=== PATIENT | male | born 1965 | race Two or more races ===

== ENCOUNTER 2020-12-05 12:25 | Inpatient (IN) | payer OTHER ==
[~2020-12-05] VITALS: Ht 175.3 cm; Wt 111.7 kg
[2020-12-05] MEDS ORDERED: cefTRIAXone 1GM/50ML D5W 50 ML IV ONE (12:45)
[2020-12-05 13:54] LABS: Basophils # (auto) 0 10 ^3/uL (0-0.2); Basophils % (auto) 0.2 % (0.0-2.0); Eosinophils # (auto) 0 10 ^3/uL (0-0.8); Hematocrit 48.4 % (41.0-53.0); Lymphocytes # (auto) 0.8 10 ^3/uL (0.4-5.4); Lymphocytes % (auto) 16.2 % (10.0-50.0); Mean Corpuscular Hemoglobin 32.4 pg (28.0-32.0); Mean Corpuscular Hgb Conc. 35.1 g/dL (32.0-36.0); Mean Corpuscular Volume 92.4 fL (80.0-100.0); Monocytes # (auto) 0.5 10 ^3/uL (0-1.3); Monocytes % (auto) 10.2 % (0.0-12.0); Neutrophils # (auto) 3.5 10 ^3/uL (1.6-8.6); Neutrophils % (auto) 73.4 % (37.0-80.0); Nucleated Red Blood Cells % 0.5 %; Red Blood Cells 5.24 10^6/uL (4.5-5.90); Red Cell Distribution Width 12.8 % (11.8-14.3); White Blood Cell 4.8 10^3/uL (4.4-10.8)
[2020-12-05 14:11] LABS: Albumin 3.6 g/dL (3.4-5.0); Anion Gap 10 (5-15); Blood Urea Nitrogen 14 mg/dL (7-18); Calcium 8.3 mg/dL (8.5-10.1); Carbon Dioxide 22 mmol/L (21-32); Chloride 104 mmol/L (98-107); Glucose 106 mg/dL (74-106); Potassium 3.7 mmol/L (3.5-5.1); Sodium 136 mmol/L (136-145)
[2020-12-05 14:19] LABS: Alanine Aminotransferase 58 U/L (16-61); Alkaline Phosphatase 45 U/L (45-117); Aspartate Aminotransferase 58 U/L (15-37); BUN/Creatinine Ratio 13.9; Bilirubin, Total 0.4 mg/dL (0.2-1.0); CRP High Sensitivity 2.75 mg/dL (< 0.3); GFR African American 98 mL/min; GFR Non-African American 81 mL/min; Total Protein 7.8 g/dL (6.4-8.2)
[2020-12-05] MEDS ORDERED: TEMAZEPAM 15 MG CAP PO PRN (19:00)
[2020-12-05] MEDS ORDERED: MORPHINE SULFATE INJECTION 2 MG/ML SYRG IV PRN (19:00)
[2020-12-05] MEDS ORDERED: REMDESIVIR PER PHARMACY 0 ML IV SCH (19:00)
[2020-12-05] MEDS ORDERED: ACETAMINOPHEN 500 MG TAB PO PRN (19:00)
[2020-12-05] MEDS ORDERED: NITROGLYCERIN 0.4 MG SL TAB SL PRN (19:00)
[2020-12-05] MEDS ORDERED: ONDANSETRON HCL 4 MG/2 ML VIAL IV PRN (19:00)
[2020-12-05] MEDS: AZITHROMYCIN 500MG/ 250ML 250 ML IV SCH (19:30)
[2020-12-05 22:00] VITALS: BP 115/63
[2020-12-05] MEDS: ENOXAPARIN SOD 40 MG/0.4 ML SYRINGE SC SCH (22:10)
[2020-12-05] MEDS: ATORVASTATIN 20 MG TAB PO SCH (22:10)
[2020-12-05 23:04] VITALS: BP 115/63
[2020-12-05] MEDS ORDERED: ATOR40TA52 PO (23:37)
[2020-12-05] MEDS ORDERED: LOSA25TA38 PO (23:37)
[2020-12-06 01:30] VITALS: BP 115/63
[2020-12-06 05:00] VITALS: BP 105/68
[2020-12-06 05:57] LABS: Basophils # (auto) 0 10 ^3/uL (0-0.2); Basophils % (auto) 0.6 % (0.0-2.0); Eosinophils # (auto) 0 10 ^3/uL (0-0.8); Hematocrit 41.4 % (41.0-53.0); Hemoglobin 14.9 g/dL (13.5-17.5); Lymphocytes # (auto) 1.2 10 ^3/uL (0.4-5.4); Lymphocytes % (auto) 20.1 % (10.0-50.0); Mean Corpuscular Hemoglobin 32.7 pg (28.0-32.0); Mean Corpuscular Hgb Conc. 35.9 g/dL (32.0-36.0); Mean Corpuscular Volume 91.1 fL (80.0-100.0); Monocytes # (auto) 0.8 10 ^3/uL (0-1.3); Neutrophils # (auto) 3.9 10 ^3/uL (1.6-8.6); Neutrophils % (auto) 66.3 % (37.0-80.0); Nucleated Red Blood Cells % 0.2 %; Red Blood Cells 4.54 10^6/uL (4.5-5.90); Red Cell Distribution Width 12.5 % (11.8-14.3); White Blood Cell 5.8 10^3/uL (4.4-10.8)
[2020-12-06 06:21] LABS: Potassium 3.8 mmol/L (3.5-5.1)
[2020-12-06 06:28] LABS: Albumin 2.8 g/dL (3.4-5.0); BUN/Creatinine Ratio 15.2; Bilirubin, Total 0.5 mg/dL (0.2-1.0); Calcium 7.8 mg/dL (8.5-10.1); Total Protein 6.4 g/dL (6.4-8.2)
[2020-12-06] MEDS: ALBUTEROL SULF HFA 90MCG INH 200DOSE IN PRN ×2 (06:45→22:56)
[2020-12-06] MEDS: PANTOPRAZOLE 40 MG TAB PO SCH (07:58)
[2020-12-06] MEDS: DexAMETHasone SOD PHOS 10MG/1ML VIAL INJ IV SCH (07:58)
[2020-12-06] MEDS: ZINC SULFATE 220mg CAP or TAB PO SCH (07:58)
[2020-12-06] MEDS: cefTRIAXone 1GM/50ML D5W 50 ML IV SCH (07:58)
[2020-12-06] MEDS: ENOXAPARIN SOD 40 MG/0.4 ML SYRINGE SC SCH ×2 (07:58→22:11)
[2020-12-06] MEDS: ASCORBIC ACID 1,000 MG TAB PO SCH (07:59)
[2020-12-06] MEDS: CHOLECALCIFEROL (VITD3) 2,000 UNIT CAP/TAB PO SCH (07:59)
[2020-12-06 09:00] VITALS: BP 118/62
[2020-12-06] MEDS ORDERED: LOSARTAN POTASSIUM 25 MG TAB PO SCH (10:00)
[2020-12-06] MEDS: AZITHROMYCIN 500MG/ 250ML 250 ML IV SCH (12:39)
[2020-12-06 13:00] VITALS: BP 116/68
[2020-12-06] MEDS ORDERED: REMDESIVIR 200 MG in NS 210ml LOADING DOSE ADULT IV ONE (15:00)
[2020-12-06 16:14] LABS: Urine Bacteria NONE SEEN /hpf (None Seen); Urine Blood Negative /uL (Negative); Urine Mucus FEW (None Seen); Urine WBC 1 /hpf (0 - 3)
[2020-12-06 17:05] VITALS: BP 119/69
[2020-12-06 22:00] VITALS: BP 121/65
[2020-12-06] MEDS: ATORVASTATIN 20 MG TAB PO SCH (22:10)
[2020-12-07 05:00] VITALS: BP 103/52
[2020-12-07] MEDS: ALBUTEROL SULF HFA 90MCG INH 200DOSE IN PRN (06:49)
[2020-12-07 08:30] VITALS: BP 100/52
[2020-12-07] MEDS: CHOLECALCIFEROL (VITD3) 2,000 UNIT CAP/TAB PO SCH (08:58)
[2020-12-07] MEDS: ENOXAPARIN SOD 40 MG/0.4 ML SYRINGE SC SCH (08:58)
[2020-12-07] MEDS: ZINC SULFATE 220mg CAP or TAB PO SCH (08:58)
[2020-12-07] MEDS: cefTRIAXone 1GM/50ML D5W 50 ML IV SCH (08:58)
[2020-12-07] MEDS: PANTOPRAZOLE 40 MG TAB PO SCH (08:58)
[2020-12-07] MEDS: ASCORBIC ACID 1,000 MG TAB PO SCH (08:58)
[2020-12-07] MEDS: DexAMETHasone SOD PHOS 10MG/1ML VIAL INJ IV SCH (08:58)
[2020-12-07] MEDS: AZITHROMYCIN 500MG/ 250ML 250 ML IV SCH (11:00)
[2020-12-07 12:34] VITALS: BP 104/61
[2020-12-07] MEDS ORDERED: guaiFENesin-CODEINE Liq 5 ML UD PO PRN (12:45)
[2020-12-07] MEDS ORDERED: TOCILIZUMAB 400 MG in SODIUM CHL 0.9% 80 ML IV SCH (14:00)
[2020-12-07] MEDS: REMDESIVIR 100mg 100 MG in SODIUM CHL 0.9% 230 ML IV SCH (15:00)
[2020-12-07] MEDS ORDERED: IOHEXOL 350 MG/ML 100ML IJ ONE (16:20)
[2020-12-07 16:40] VITALS: BP 105/66
[2020-12-07] MEDS: ATORVASTATIN 20 MG TAB PO SCH (21:38)
[2020-12-07] MEDS: ENOXAPARIN SOD 60 MG/0.6 ML SYRINGE SC SCH (21:38)
[2020-12-07 22:00] VITALS: BP 115/72
[2020-12-08 05:00] VITALS: BP 119/68
[2020-12-08 06:08] LABS: Albumin 2.7 g/dL (3.4-5.0); BUN/Creatinine Ratio 26.1; Calcium 8.1 mg/dL (8.5-10.1)
[2020-12-08 06:24] LABS: Bilirubin, Total 0.4 mg/dL (0.2-1.0); Total Protein 6.4 g/dL (6.4-8.2)
[2020-12-08] MEDS: ALBUTEROL SULF HFA 90MCG INH 200DOSE IN PRN ×2 (06:56→22:14)
[2020-12-08] MEDS: ZINC SULFATE 220mg CAP or TAB PO SCH (08:06)
[2020-12-08] MEDS: PANTOPRAZOLE 40 MG TAB PO SCH (08:06)
[2020-12-08] MEDS: CHOLECALCIFEROL (VITD3) 2,000 UNIT CAP/TAB PO SCH (08:06)
[2020-12-08] MEDS: ENOXAPARIN SOD 60 MG/0.6 ML SYRINGE SC SCH ×2 (08:06→22:11)
[2020-12-08] MEDS: ASCORBIC ACID 1,000 MG TAB PO SCH (08:06)
[2020-12-08] MEDS: DexAMETHasone SOD PHOS 10MG/1ML VIAL INJ IV SCH (08:06)
[2020-12-08] MEDS: cefTRIAXone 1GM/50ML D5W 50 ML IV SCH (08:06)
[2020-12-08 09:24] VITALS: BP 122/68
[2020-12-08] MEDS: AZITHROMYCIN 500MG/ 250ML 250 ML IV SCH (10:00)
[2020-12-08 12:24] VITALS: BP 115/70
[2020-12-08] MEDS: REMDESIVIR 100mg 100 MG in SODIUM CHL 0.9% 230 ML IV SCH (15:51)
[2020-12-08 17:16] VITALS: BP 120/71
[2020-12-08 22:00] VITALS: BP 115/59
[2020-12-08] MEDS: ATORVASTATIN 20 MG TAB PO SCH (22:11)
[2020-12-09] VITALS (7 sets, daily range): BP systolic 98–122; BP diastolic 42–74
[2020-12-09 05:51] LABS: Basophils # (auto) 0 10 ^3/uL (0-0.2); Basophils % (auto) 0.1 % (0.0-2.0); Eosinophils # (auto) 0 10 ^3/uL (0-0.8); Hematocrit 41.9 % (41.0-53.0); Hemoglobin 14.8 g/dL (13.5-17.5); Lymphocytes % (auto) 11.1 % (10.0-50.0); Mean Corpuscular Hemoglobin 32.9 pg (28.0-32.0); Mean Corpuscular Hgb Conc. 35.3 g/dL (32.0-36.0); Mean Corpuscular Volume 93.2 fL (80.0-100.0); Monocytes # (auto) 1.5 10 ^3/uL (0-1.3); Monocytes % (auto) 16.2 % (0.0-12.0); Neutrophils # (auto) 6.7 10 ^3/uL (1.6-8.6); Neutrophils % (auto) 72.6 % (37.0-80.0); Nucleated Red Blood Cells % 0.1 %; Red Blood Cells 4.49 10^6/uL (4.5-5.90); Red Cell Distribution Width 12.6 % (11.8-14.3); White Blood Cell 9.3 10^3/uL (4.4-10.8)
[2020-12-09 06:03] LABS: Albumin 2.4 g/dL (3.4-5.0); Calcium 8.2 mg/dL (8.5-10.1); Potassium 4.3 mmol/L (3.5-5.1)
[2020-12-09 06:05] LABS: CRP High Sensitivity 0.61 mg/dL (< 0.3)
[2020-12-09 06:17] LABS: BUN/Creatinine Ratio 24.6; Bilirubin, Total 0.5 mg/dL (0.2-1.0); Total Protein 6.3 g/dL (6.4-8.2)
[2020-12-09] MEDS: ALBUTEROL SULF HFA 90MCG INH 200DOSE IN PRN (07:01)
[2020-12-09] MEDS: ZINC SULFATE 220mg CAP or TAB PO SCH (09:37)
[2020-12-09] MEDS: cefTRIAXone 1GM/50ML D5W 50 ML IV SCH (09:37)
[2020-12-09] MEDS: PANTOPRAZOLE 40 MG TAB PO SCH (09:37)
[2020-12-09] MEDS: AZITHROMYCIN 500MG/ 250ML 250 ML IV SCH (09:37)
[2020-12-09] MEDS: DexAMETHasone SOD PHOS 10MG/1ML VIAL INJ IV SCH (09:37)
[2020-12-09] MEDS: ASCORBIC ACID 1,000 MG TAB PO SCH (09:38)
[2020-12-09] MEDS: ENOXAPARIN SOD 60 MG/0.6 ML SYRINGE SC SCH ×2 (09:38→22:06)
[2020-12-09] MEDS: CHOLECALCIFEROL (VITD3) 2,000 UNIT CAP/TAB PO SCH (09:38)
[2020-12-09] MEDS ORDERED: FUROSEMIDE 20 MG/2 ML VIAL IV ONE (10:00)
[2020-12-09] MEDS ORDERED: FUROSEMIDE 20 MG/2 ML VIAL IV SCH (10:00)
[2020-12-09] MEDS: SALINE 0.65 % NASAL SPRAY 45ML BOTTLE EACHNOSTRI SCH ×3 (11:36→22:05)
[2020-12-09] MEDS: REMDESIVIR 100mg 100 MG in SODIUM CHL 0.9% 230 ML IV SCH (15:56)
[2020-12-09] MEDS: ATORVASTATIN 20 MG TAB PO SCH (22:05)
[2020-12-10] VITALS (7 sets, daily range): BP systolic 108–124; BP diastolic 64–75
[2020-12-10 05:56] LABS: Hematocrit 42.7 % (41.0-53.0); Hemoglobin 14.6 g/dL (13.5-17.5); Mean Corpuscular Hemoglobin 31.6 pg (28.0-32.0); Mean Corpuscular Hgb Conc. 34.1 g/dL (32.0-36.0); Mean Corpuscular Volume 92.6 fL (80.0-100.0); Red Blood Cells 4.61 10^6/uL (4.5-5.90); White Blood Cell 11.3 10^3/uL (4.4-10.8)
[2020-12-10 06:10] LABS: Basophils % (manual) 0 (0.0-2.0); Blast Cells 0; Eosinophils % (manual) 0 (0-7); Metamyelocytes % 0; Promyelocytes % 0; Reactive Lymphocytes 0
[2020-12-10 06:11] LABS: BUN/Creatinine Ratio 23.1; Calcium 8.6 mg/dL (8.5-10.1); Potassium 4.9 mmol/L (3.5-5.1)
[2020-12-10] MEDS: SALINE 0.65 % NASAL SPRAY 45ML BOTTLE EACHNOSTRI SCH ×4 (06:28→22:13)
[2020-12-10 06:40] LABS: Band Neutrophils % (manual) 2; Lymphocytes % (manual) 10 (10.0-50.0); Monocytes % (manual) 8 (0-12); Myelocytes % 1
[2020-12-10] MEDS: ALBUTEROL SULF HFA 90MCG INH 200DOSE IN PRN (08:00)
[2020-12-10] MEDS: cefTRIAXone 1GM/50ML D5W 50 ML IV SCH (09:58)
[2020-12-10] MEDS: DexAMETHasone SOD PHOS 10MG/1ML VIAL INJ IV SCH (09:58)
[2020-12-10] MEDS: PANTOPRAZOLE 40 MG TAB PO SCH (09:58)
[2020-12-10] MEDS: CHOLECALCIFEROL (VITD3) 2,000 UNIT CAP/TAB PO SCH (09:58)
[2020-12-10] MEDS: ASCORBIC ACID 1,000 MG TAB PO SCH (09:58)
[2020-12-10] MEDS: ZINC SULFATE 220mg CAP or TAB PO SCH (09:58)
[2020-12-10] MEDS: ENOXAPARIN SOD 60 MG/0.6 ML SYRINGE SC SCH ×2 (09:59→22:13)
[2020-12-10] MEDS: REMDESIVIR 100mg 100 MG in SODIUM CHL 0.9% 230 ML IV SCH (15:37)
[2020-12-10] MEDS: ATORVASTATIN 20 MG TAB PO SCH (22:13)
[2020-12-11] VITALS (7 sets, daily range): BP systolic 106–144; BP diastolic 59–84
[2020-12-11 05:25] LABS: Hemoglobin 14.6 g/dL (13.5-17.5); Mean Corpuscular Hgb Conc. 34.8 g/dL (32.0-36.0); Red Blood Cells 4.56 10^6/uL (4.5-5.90); Red Cell Distribution Width 12.8 % (11.8-14.3); White Blood Cell 16.6 10^3/uL (4.4-10.8)
[2020-12-11 05:39] LABS: Calcium 8.7 mg/dL (8.5-10.1); Potassium 4.1 mmol/L (3.5-5.1)
[2020-12-11 05:41] LABS: BUN/Creatinine Ratio 24.1
[2020-12-11 05:43] LABS: Basophils % (manual) 0 (0.0-2.0); Blast Cells 0; Eosinophils % (manual) 0 (0-7); Metamyelocytes % 0; Myelocytes % 0; Promyelocytes % 0; Reactive Lymphocytes 0
[2020-12-11] MEDS: SALINE 0.65 % NASAL SPRAY 45ML BOTTLE EACHNOSTRI SCH ×4 (05:52→22:02)
[2020-12-11] MEDS: ALBUTEROL SULF HFA 90MCG INH 200DOSE IN PRN ×3 (06:24→22:24)
[2020-12-11 06:36] LABS: Band Neutrophils % (manual) 12; Lymphocytes % (manual) 13 (10.0-50.0); Monocytes % (manual) 4 (0-12)
[2020-12-11] MEDS: cefTRIAXone 1GM/50ML D5W 50 ML IV SCH (08:54)
[2020-12-11] MEDS: ZINC SULFATE 220mg CAP or TAB PO SCH (08:55)
[2020-12-11] MEDS: DexAMETHasone SOD PHOS 10MG/1ML VIAL INJ IV SCH (08:55)
[2020-12-11] MEDS: PANTOPRAZOLE 40 MG TAB PO SCH (08:55)
[2020-12-11] MEDS: CHOLECALCIFEROL (VITD3) 2,000 UNIT CAP/TAB PO SCH (08:55)
[2020-12-11] MEDS: ASCORBIC ACID 1,000 MG TAB PO SCH (08:56)
[2020-12-11] MEDS: ENOXAPARIN SOD 60 MG/0.6 ML SYRINGE SC SCH ×2 (08:56→22:02)
[2020-12-11] MEDS: ATORVASTATIN 20 MG TAB PO SCH (22:02)
[2020-12-12 05:00] VITALS: BP 111/51
[2020-12-12] MEDS: SALINE 0.65 % NASAL SPRAY 45ML BOTTLE EACHNOSTRI SCH ×4 (06:30→20:50)
[2020-12-12] MEDS: ALBUTEROL SULF HFA 90MCG INH 200DOSE IN PRN ×2 (06:40→22:01)
[2020-12-12 08:43] LABS: Hematocrit 45.2 % (41.0-53.0); Hemoglobin 15.3 g/dL (13.5-17.5); Mean Corpuscular Hemoglobin 31.9 pg (28.0-32.0); Mean Corpuscular Hgb Conc. 33.8 g/dL (32.0-36.0); Mean Corpuscular Volume 94.5 fL (80.0-100.0); Red Blood Cells 4.78 10^6/uL (4.5-5.90); Red Cell Distribution Width 12.7 % (11.8-14.3); White Blood Cell 15.7 10^3/uL (4.4-10.8)
[2020-12-12 09:00] VITALS: BP 99/68
[2020-12-12] MEDS: cefTRIAXone 1GM/50ML D5W 50 ML IV SCH (09:02)
[2020-12-12 09:03] LABS: Calcium 8.8 mg/dL (8.5-10.1); Potassium 4.1 mmol/L (3.5-5.1)
[2020-12-12] MEDS: DexAMETHasone SOD PHOS 10MG/1ML VIAL INJ IV SCH (09:03)
[2020-12-12] MEDS: ZINC SULFATE 220mg CAP or TAB PO SCH (09:03)
[2020-12-12] MEDS: PANTOPRAZOLE 40 MG TAB PO SCH (09:03)
[2020-12-12] MEDS: ASCORBIC ACID 1,000 MG TAB PO SCH (09:04)
[2020-12-12] MEDS: ENOXAPARIN SOD 60 MG/0.6 ML SYRINGE SC SCH ×2 (09:04→20:51)
[2020-12-12] MEDS: CHOLECALCIFEROL (VITD3) 2,000 UNIT CAP/TAB PO SCH (09:04)
[2020-12-12 09:05] LABS: Basophils % (manual) 0 (0.0-2.0); Blast Cells 0; Eosinophils % (manual) 0 (0-7); Metamyelocytes % 0; Myelocytes % 0; Promyelocytes % 0; Reactive Lymphocytes 0
[2020-12-12 09:11] LABS: BUN/Creatinine Ratio 23.1; CRP High Sensitivity 3.65 mg/dL (< 0.3)
[2020-12-12 12:36] LABS: Band Neutrophils % (manual) 2; Lymphocytes % (manual) 9 (10.0-50.0); Monocytes % (manual) 7 (0-12)
[2020-12-12 13:00] VITALS: BP 119/74
[2020-12-12 17:00] VITALS: BP 120/68
[2020-12-12] MEDS: ATORVASTATIN 20 MG TAB PO SCH (20:51)
[2020-12-12 22:00] VITALS: BP 124/73
[2020-12-13 05:00] VITALS: BP 132/73
[2020-12-13 05:33] LABS: Hematocrit 43.5 % (41.0-53.0); Hemoglobin 14.8 g/dL (13.5-17.5); Mean Corpuscular Hemoglobin 31.5 pg (28.0-32.0); Mean Corpuscular Hgb Conc. 34.1 g/dL (32.0-36.0); Mean Corpuscular Volume 92.6 fL (80.0-100.0); Red Cell Distribution Width 12.7 % (11.8-14.3); White Blood Cell 14.5 10^3/uL (4.4-10.8)
[2020-12-13 05:49] LABS: Potassium 4.7 mmol/L (3.5-5.1)
[2020-12-13] MEDS: SALINE 0.65 % NASAL SPRAY 45ML BOTTLE EACHNOSTRI SCH ×4 (06:00→21:21)
[2020-12-13] MEDS: ALBUTEROL SULF HFA 90MCG INH 200DOSE IN PRN ×2 (06:22→19:35)
[2020-12-13 06:29] LABS: Basophils % (manual) 0 (0.0-2.0); Blast Cells 0; Eosinophils % (manual) 0 (0-7); Promyelocytes % 0; Reactive Lymphocytes 0
[2020-12-13 08:35] VITALS: BP 110/78
[2020-12-13 09:30] LABS: Band Neutrophils % (manual) 4; Lymphocytes % (manual) 3 (10.0-50.0); Metamyelocytes % 3; Monocytes % (manual) 9 (0-12); Myelocytes % 1
[2020-12-13] MEDS: cefTRIAXone 1GM/50ML D5W 50 ML IV SCH (09:39)
[2020-12-13] MEDS: DexAMETHasone SOD PHOS 10MG/1ML VIAL INJ IV SCH (09:40)
[2020-12-13] MEDS: CHOLECALCIFEROL (VITD3) 2,000 UNIT CAP/TAB PO SCH (09:40)
[2020-12-13] MEDS: PANTOPRAZOLE 40 MG TAB PO SCH (09:40)
[2020-12-13] MEDS: ZINC SULFATE 220mg CAP or TAB PO SCH (09:40)
[2020-12-13] MEDS: ENOXAPARIN SOD 60 MG/0.6 ML SYRINGE SC SCH ×2 (09:40→21:21)
[2020-12-13] MEDS: ASCORBIC ACID 1,000 MG TAB PO SCH (09:40)
[2020-12-13 12:13] VITALS: BP 104/69
[2020-12-13 16:56] VITALS: BP 127/81
[2020-12-13] MEDS: ATORVASTATIN 20 MG TAB PO SCH (21:21)
[2020-12-13 22:00] VITALS: BP 112/74
[2020-12-14 05:00] VITALS: BP 92/62
[2020-12-14] MEDS: SALINE 0.65 % NASAL SPRAY 45ML BOTTLE EACHNOSTRI SCH ×2 (05:50→12:00)
[2020-12-14 08:00] VITALS: BP 117/71
[2020-12-14] MEDS: ALBUTEROL SULF HFA 90MCG INH 200DOSE IN PRN (08:12)
[2020-12-14 08:15] VITALS: BP 117/71
[2020-12-14] MEDS: cefTRIAXone 1GM/50ML D5W 50 ML IV SCH ×2 (09:00→09:08)
[2020-12-14] MEDS ORDERED: ASPI-231 PO (09:11)
[2020-12-14] MEDS ORDERED: DOXY-340 PO (09:12)
[2020-12-14] MEDS ORDERED: ALBUAER3 IN (09:13)
[2020-12-14] MEDS: DexAMETHasone SOD PHOS 10MG/1ML VIAL INJ IV SCH (09:48)
[2020-12-14] MEDS: ENOXAPARIN SOD 60 MG/0.6 ML SYRINGE SC SCH (09:48)
[2020-12-14] MEDS: CHOLECALCIFEROL (VITD3) 2,000 UNIT CAP/TAB PO SCH (09:48)
[2020-12-14] MEDS: ZINC SULFATE 220mg CAP or TAB PO SCH (09:48)
[2020-12-14] MEDS: PANTOPRAZOLE 40 MG TAB PO SCH (09:48)
[2020-12-14] MEDS: ASCORBIC ACID 1,000 MG TAB PO SCH (09:48)
== END 2020-12-14 11:50 | disposition home or self-care (01) | DRG 177 ==
LOC: ER 12:25 → TELE 18:57 → TELE-EAST 21:00
PROVIDERS: ADMIT Nurse Practitioner; ATTEND Internal Medicine Nephrology
PROC: XW033E5 Introduction of Remdesivir Anti-infective into Peripheral Vein, Percutaneous Approach, New Technology Group 5 (ICD-10-PCS; principal; 2020-12-06)
DX: U07.1 COVID-19 (principal); J12.82 Pneumonia due to coronavirus disease 2019; J96.01 Acute respiratory failure with hypoxia; A41.89 Other specified sepsis; I10 Essential (primary) hypertension; E66.9 Obesity, unspecified; E11.9 Type 2 diabetes mellitus without complications; D89.839 Cytokine release syndrome, grade unspecified; E78.5 Hyperlipidemia, unspecified; Z68.37 Body mass index [BMI] 37.0-37.9, adult
CPT/HCPCS: 36415; 36600; 71045; 71275; 80048; 80053; 81001; 82728; 82805; 83605; 83615; 83735; 84484; 85007; 85025; 85027; 85379; 86141; 87040; 87426; 93005; 94640; 96365; 96366; 96367; 99291; G0378; J0696; J1100

== ENCOUNTER → 2021-05-04 | Outpatient (CLI) | payer OTHER ==
[~2021-05-04] MED LIST: ALBUAER3 IN; ASPI1TAB20 PO; ATOR40TA52 PO; DOXY-340 PO
[2021-05-04 09:34] LABS: Albumin 3.7 g/dL (3.4-5.0); Bilirubin, Direct 0.3 mg/dL (0-0.2); Total Protein 6.8 g/dL (6.4-8.2)
== END | disposition home or self-care (01) ==
LOC: LAB 08:23
PROVIDERS: ATTEND Internal Medicine
DX: E78.5 Hyperlipidemia, unspecified (principal)
CPT/HCPCS: 36415; 80076

== ENCOUNTER → 2021-06-27 | Outpatient (CLI) | payer OTHER ==
[2021-06-27 09:35] LABS: Albumin 3.7 g/dL (3.4-5.0); Bilirubin, Direct 0.2 mg/dL (0-0.2)
[2021-06-27 09:38] LABS: Bilirubin, Total 0.8 mg/dL (0.2-1.0); Total Protein 7.2 g/dL (6.4-8.2)
== END | disposition home or self-care (01) ==
LOC: LAB 08:30
PROVIDERS: ATTEND Internal Medicine
DX: E78.5 Hyperlipidemia, unspecified (principal)
CPT/HCPCS: 36415; 80061; 80076

== ENCOUNTER → 2021-09-28 | Outpatient (CLI) | payer OTHER ==
[2021-09-28 09:26] LABS: Cholesterol 162 mg/dL (< 200); HDL Cholesterol 38 mg/dL (40-59); LDL Cholesterol 90 mg/dL (< 100); Triglycerides 214 mg/dL (< 150)
== END | disposition home or self-care (01) ==
LOC: LAB 08:30
PROVIDERS: ATTEND Internal Medicine
DX: R73.03 Prediabetes (principal); E78.5 Hyperlipidemia, unspecified
CPT/HCPCS: 36415; 80061; 83036

== ENCOUNTER → 2021-12-31 | Outpatient (CLI) | payer OTHER ==
[2021-12-31 09:06] LABS: Basophils # (auto) 0 10 ^3/uL (0-0.2); Basophils % (auto) 0.4 % (0.0-2.0); Eosinophils # (auto) 0.1 10 ^3/uL (0-0.8); Eosinophils % (auto) 1.9 % (0.0-7.0); Hematocrit 45.8 % (41.0-53.0); Hemoglobin 15.6 g/dL (13.5-17.5); Lymphocytes % (auto) 27.7 % (10.0-50.0); Mean Corpuscular Hemoglobin 31.7 pg (28.0-32.0); Mean Corpuscular Hgb Conc. 34.2 g/dL (32.0-36.0); Mean Corpuscular Volume 92.9 fL (80.0-100.0); Monocytes # (auto) 0.7 10 ^3/uL (0-1.3); Monocytes % (auto) 9.3 % (0.0-12.0); Neutrophils # (auto) 4.4 10 ^3/uL (1.6-8.6); Neutrophils % (auto) 60.7 % (37.0-80.0); Nucleated Red Blood Cells % 0.1 %; Red Blood Cells 4.93 10^6/uL (4.5-5.90); Red Cell Distribution Width 12.4 % (11.8-14.3); White Blood Cell 7.2 10^3/uL (4.4-10.8)
== END | disposition home or self-care (01) ==
LOC: LAB 08:27
PROVIDERS: ATTEND Internal Medicine
DX: Z12.11 Encounter for screening for malignant neoplasm of colon (principal); E66.9 Obesity, unspecified; E78.5 Hyperlipidemia, unspecified; R73.03 Prediabetes
CPT/HCPCS: 36415; 82043; 83036; 84153; 85025

== ENCOUNTER → 2022-03-27 | Outpatient (CLI) | payer OTHER ==
[2022-03-27 10:07] LABS: Cholesterol 181 mg/dL (< 200); HDL Cholesterol 43 mg/dL (40-59); LDL Cholesterol 104 mg/dL (< 100); Triglycerides 185 mg/dL (< 150)
== END | disposition home or self-care (01) ==
LOC: LAB 09:01
PROVIDERS: ATTEND Internal Medicine
DX: E78.5 Hyperlipidemia, unspecified (principal)
CPT/HCPCS: 36415; 80061

== ENCOUNTER → 2022-09-26 | Outpatient (CLI) | payer OTHER ==
[~2022-09-26] MED LIST changes: -DOXY-340 PO; +DOXY1CAP57 PO
[2022-09-26 10:36] LABS: Basophils # (auto) 0 10 ^3/uL (0-0.2); Basophils % (auto) 0.7 % (0.0-2.0); Eosinophils # (auto) 0.2 10 ^3/uL (0-0.8); Eosinophils % (auto) 2.2 % (0.0-7.0); Hematocrit 45.1 % (41.0-53.0); Hemoglobin 15.4 g/dL (13.5-17.5); Lymphocytes # (auto) 2.4 10 ^3/uL (0.4-5.4); Lymphocytes % (auto) 33.2 % (10.0-50.0); Mean Corpuscular Hemoglobin 32.1 pg (28.0-32.0); Mean Corpuscular Hgb Conc. 34.1 g/dL (32.0-36.0); Mean Corpuscular Volume 93.9 fL (80.0-100.0); Monocytes # (auto) 0.7 10 ^3/uL (0-1.3); Neutrophils # (auto) 3.8 10 ^3/uL (1.6-8.6); Neutrophils % (auto) 53.9 % (37.0-80.0); Nucleated Red Blood Cells % 0.2 %; Red Cell Distribution Width 12.8 % (11.8-14.3); White Blood Cell 7.1 10^3/uL (4.4-10.8)
[2022-09-26 11:14] LABS: Potassium 4.4 mmol/L (3.5-5.1)
[2022-09-26 11:42] LABS: Albumin 3.7 g/dL (3.4-5.0); BUN/Creatinine Ratio 19.1 (10.0-20.0); Calcium 8.7 mg/dL (8.5-10.1)
[2022-09-26 11:54] LABS: Bilirubin, Total 0.5 mg/dL (0.2-1.0)
[2022-09-26 14:51] LABS: Cholesterol 171 mg/dL (< 200); HDL Cholesterol 42 mg/dL (40-59); LDL Cholesterol 99 mg/dL (< 100); Triglycerides 165 mg/dL (< 150)
== END | disposition home or self-care (01) ==
LOC: LAB 08:02
PROVIDERS: ATTEND Internal Medicine
DX: Z01.89 Encounter for other specified special examinations (principal); Z79.899 Other long term (current) drug therapy
CPT/HCPCS: 36415; 80053; 80061; 83036; 85025

== ENCOUNTER → 2022-12-27 | Outpatient (CLI) | payer OTHER ==
[2022-12-27 12:04] LABS: Albumin 4.4 g/dL (3.2-4.8); Bilirubin, Direct 0.3 mg/dL (<0.3); Bilirubin, Total 1.2 mg/dL (0.2-1.0); Total Protein 6.9 g/dL (5.7-8.2)
== END | disposition home or self-care (01) ==
LOC: LAB 10:08
PROVIDERS: ATTEND Internal Medicine
DX: E78.5 Hyperlipidemia, unspecified (principal); R73.03 Prediabetes; R79.89 Other specified abnormal findings of blood chemistry
CPT/HCPCS: 36415; 80074; 80076

== ENCOUNTER → 2023-04-14 | Outpatient (CLI) | payer OTHER ==
[2023-04-14 11:18] LABS: Alanine Aminotransferase 61 U/L (7-40); Albumin 4.6 g/dL (3.2-4.8); Alkaline Phosphatase 54 U/L (46-116); Anion Gap 4 (5-15); Aspartate Aminotransferase 30 U/L (13-40); BUN/Creatinine Ratio 10.8 (10.0-20.0); Bilirubin, Total 0.7 mg/dL (0.2-1.0); Blood Urea Nitrogen 10 mg/dL (9-23); Calcium 9.4 mg/dL (8.5-10.1); Carbon Dioxide 28 mmol/L (20-30); Chloride 107 mmol/L (98-107); Cholesterol 158 mg/dL (< 200); Glucose 104 mg/dL (74-106); HDL Cholesterol 40 mg/dL (40-59); LDL Cholesterol 87 mg/dL (< 100); Potassium 4.6 mmol/L (3.5-5.1); Sodium 139 mmol/L (136-145); Total Protein 6.9 g/dL (5.7-8.2); Triglycerides 222 mg/dL (< 150)
[2023-04-14 11:46] LABS: Micro Albumin < 3.0 mg/L (<30.0)
== END | disposition home or self-care (01) ==
LOC: LAB 10:13
PROVIDERS: ATTEND Internal Medicine
DX: Z12.11 Encounter for screening for malignant neoplasm of colon (principal); E78.5 Hyperlipidemia, unspecified; R73.03 Prediabetes
CPT/HCPCS: 36415; 80053; 80061; 82043; 82570; 83036; 84153

== ENCOUNTER → 2023-04-18 | Outpatient (CLI) | payer OTHER | END | disposition home or self-care (01) | LOC: LAB 14:54 | PROVIDERS: ATTEND Internal Medicine | DX: Z12.11 Encounter for screening for malignant neoplasm of colon (principal); E78.5 Hyperlipidemia, unspecified; R73.03 Prediabetes | CPT/HCPCS: 82270 ==

== ENCOUNTER → 2023-07-14 | Outpatient (CLI) | payer OTHER ==
[2023-07-14 09:30] LABS: Albumin 4.6 g/dL (3.2-4.8); Bilirubin, Direct 0.2 mg/dL (<0.3); Bilirubin, Total 0.8 mg/dL (0.2-1.0); Total Protein 6.9 g/dL (5.7-8.2)
== END | disposition home or self-care (01) ==
LOC: LAB 08:36
PROVIDERS: ATTEND Internal Medicine
DX: Z12.11 Encounter for screening for malignant neoplasm of colon (principal); E78.5 Hyperlipidemia, unspecified
CPT/HCPCS: 36415; 80061; 80076

== ENCOUNTER → 2023-11-13 | Outpatient (CLI) | payer OTHER ==
[2023-11-13 09:50] LABS: Albumin 4.2 g/dL (3.2-4.8); Bilirubin, Direct 0.3 mg/dL (<0.3)
[2023-11-13 09:51] LABS: Bilirubin, Total 0.8 mg/dL (0.2-1.0); Total Protein 6.6 g/dL (5.7-8.2)
== END | disposition home or self-care (01) ==
LOC: LAB 08:47
PROVIDERS: ATTEND Internal Medicine
DX: R73.03 Prediabetes (principal); E66.9 Obesity, unspecified
CPT/HCPCS: 36415; 80061; 80076; 83036

== ENCOUNTER → 2024-05-06 | Outpatient (CLI) | payer OTHER ==
[2024-05-06 09:57] LABS: Basophils # (auto) 0 10 ^3/uL (0-0.2); Basophils % (auto) 0.5 % (0.0-2.0); Eosinophils # (auto) 0.3 10 ^3/uL (0-0.8); Eosinophils % (auto) 3.2 % (0.0-7.0); Hematocrit 45.8 % (41.0-53.0); Hemoglobin 15.9 g/dL (13.5-17.5); Lymphocytes # (auto) 2.2 10 ^3/uL (0.4-5.4); Lymphocytes % (auto) 27.5 % (10.0-50.0); Mean Corpuscular Hemoglobin 31.8 pg (28.0-32.0); Mean Corpuscular Hgb Conc. 34.6 g/dL (32.0-36.0); Mean Corpuscular Volume 91.9 fL (80.0-100.0); Monocytes # (auto) 0.8 10 ^3/uL (0-1.3); Monocytes % (auto) 9.7 % (0.0-12.0); Neutrophils # (auto) 4.7 10 ^3/uL (1.6-8.6); Neutrophils % (auto) 59.1 % (37.0-80.0); Nucleated Red Blood Cells % 0.2 %; Platelet Count (auto) 208 10^3/uL (140-450); Red Blood Cells 4.98 10^6/uL (4.5-5.90); Red Cell Distribution Width 12.7 % (11.8-14.3); White Blood Cell 7.9 10^3/uL (4.4-10.8)
[2024-05-06 11:35] LABS: Anion Gap 8 (5-15); Calcium 9.7 mg/dL (8.7-10.4); Carbon Dioxide 25 mmol/L (20-31); Potassium 4.3 mmol/L (3.5-5.1); Sodium 141 mmol/L (136-145)
[2024-05-06 11:37] LABS: Blood Urea Nitrogen 14 mg/dL (9-23)
[2024-05-06 11:39] LABS: Albumin 4.6 g/dL (3.2-4.8)
[2024-05-06 11:40] LABS: Bilirubin, Total 0.5 mg/dL (0.2-1.0); Total Protein 6.6 g/dL (5.7-8.2)
[2024-05-06 11:48] LABS: Alanine Aminotransferase 72 U/L (7-40); Alkaline Phosphatase 44 U/L (46-116); Aspartate Aminotransferase 40 U/L (13-40); Chloride 108 mmol/L (98-107); Glucose 114 mg/dL (74-106)
[2024-05-06 12:48] LABS: Triglycerides 138 mg/dL (< 150)
[2024-05-06 12:50] LABS: Cholesterol 163 mg/dL (< 200)
[2024-05-06 12:52] LABS: HDL Cholesterol 42 mg/dL (40-59); LDL Cholesterol 107 mg/dL (< 100)
== END | disposition home or self-care (01) ==
LOC: LAB 08:54
PROVIDERS: ATTEND Internal Medicine
DX: I10 Essential (primary) hypertension (principal); E78.5 Hyperlipidemia, unspecified; E66.9 Obesity, unspecified; R73.03 Prediabetes
CPT/HCPCS: 36415; 80053; 80061; 83036; 84153; 85025

== ENCOUNTER → 2024-05-10 | Outpatient (CLI) | payer OTHER ==
[2024-05-11 16:08] LABS: Microalb/Creat Ratio, Urine < 3.0
[2024-05-11 16:13] LABS: Micro Albumin < 3.0 mg/L (<30.0)
== END | disposition home or self-care (01) ==
LOC: LAB 13:24
PROVIDERS: ATTEND Internal Medicine
DX: I10 Essential (primary) hypertension (principal); E78.5 Hyperlipidemia, unspecified; R73.03 Prediabetes; E66.9 Obesity, unspecified
CPT/HCPCS: 36415; 82043; 82270; 82570

== ENCOUNTER 2024-11-08 08:43 | Outpatient (CLI) | payer OTHER ==
[2024-11-08 09:35] LABS: Triglycerides 126 mg/dL (< 150)
[2024-11-08 09:37] LABS: Cholesterol 142 mg/dL (< 200)
[2024-11-08 09:39] LABS: HDL Cholesterol 40 mg/dL (40-59)
== END 2024-11-08 17:00 | disposition home or self-care (01) ==
LOC: LAB 08:43
PROVIDERS: ATTEND Internal Medicine
DX: E78.5 Hyperlipidemia, unspecified (principal); R73.03 Prediabetes
CPT/HCPCS: 36415; 80061; 83036

== ENCOUNTER 2025-02-07 08:26 | Outpatient (CLI) | payer OTHER | END 2025-02-08 17:00 | disposition home or self-care (01) | LOC: LAB 08:26 | PROVIDERS: ATTEND Internal Medicine | DX: E78.5 Hyperlipidemia, unspecified (principal); R73.03 Prediabetes; G56.01 Carpal tunnel syndrome, right upper limb | CPT/HCPCS: 36415; 82607; 82746; 84443; 85652; 86141 ==